=== PATIENT | male | born 1985 | race Caucasian/White ===

== ENCOUNTER 2018-01-31 04:17 | Inpatient (IN) | payer OTHER, SELFPAY ==
[2018-01-31 04:36] LABS: #Basophils 0.1 thou/uL (0.0-0.2); #Eosinphils 0.2 thou/uL (0.0-0.7); #Lymphocytes 2.2 thou/uL (1.20-3.40); #Monocytes 1.1 thou/uL (0.11-0.59); #Neutrophils 13.4 thou/uL (1.40-6.50); %Basophils 0.5 % (0.0-1.0); %Lymphocytes 13.2 % (21.0-51.0); %Monocytes 6.2 % (0.0-10.0); %Neutrophils 79.2 % (42.0-75.0); Hemoglobin 16.4 g/dL (14.0-18.0); Mean Corpuscular HGB CONC 34.2 g/dL (32.0-36.0); Mean Corpuscular Hemoglobin 31.3 pg (27.0-31.0); Mean Corpuscular Volume 91.4 fl (80.0-94.0); Platelet Count 306 thou/uL (130-400); RBC Distribution Width 12.8 % (11.5-14.5); Red Blood Cell (RBC) Count 5.23 mill/uL (4.70-6.10); White Blood Cell (WBC) Count 16.9 thou/uL (4.8-10.8)
[2018-01-31 04:48] LABS: Alcohol Less than 10 mg/dL (Less than 10); Anion Gap 12 mmol/L (10-20); BUN (Urea Nitrogen) 11 mg/dL (8.9-20.6); Calc. Creatinine Clearance 0 mL/min (70-130); Calcium 9.2 mg/dL (7.8-10.44); Carbon Dioxide 25 mmol/L (22-29); Chloride 104 mmol/L (98-107); Estimated GFR-MDRD Greater than 90; Glucose 120 mg/dL (70-105); Potassium 3.4 mmol/L (3.5-5.1); Sodium 138 mmol/L (136-145)
[2018-01-31] MEDS ORDERED: Morphine 4 MG/ML VIAL ONE (04:51)
[2018-01-31] MEDS ORDERED: CEFAZOLIN 1 GM VIAL ONE (05:21)
[2018-01-31] MEDS ORDERED: Sodium Chloride 0.9% 100 ML ONE (05:22)
[2018-01-31] MEDS ORDERED: Adacel (T-DAP) 0.5 ML VIAL ONE (05:22)
[2018-01-31] MEDS ORDERED: TETANUS AND DIPHTHERIA TOX/PF 0.5 ML DISP.SYRIN IM SCH (07:00)
[2018-01-31 08:00] VITALS: BMI 22.8
[2018-01-31] MEDS ORDERED: Dextrose 5% in Water 1,000 ML IV PRN (08:13)
[2018-01-31] MEDS ORDERED: Ondansetron ODT 4 MG TAB PO PRN (08:13)
[2018-01-31] MEDS ORDERED: hydrALAZINE 20 MG/ML VIAL SLOW IVP PRN (08:13)
[2018-01-31] MEDS ORDERED: Dextrose 50% Abboject 50 ML SYRINGE SLOW IVP PRN (08:13)
[2018-01-31] MEDS ORDERED: Ondansetron HCl/PF 4 MG/2 ML Vial IVP PRN ×2 (08:13→14:31)
[2018-01-31] MEDS ORDERED: ABX IVPB PRN (08:15)
[2018-01-31] MEDS: Morphine 4 MG/ML VIAL SLOW IVP PRN (08:39)
[2018-01-31] MEDS ORDERED: Morphine 4 MG/ML VIAL SLOW IVP PRN ×2 (09:00)
[2018-01-31] MEDS ORDERED: Fentanyl 100 MCG/2 ML VIAL ONE (10:46)
[2018-01-31] MEDS ORDERED: HYDROmorphone 0.5 MG/0.5 ML SYRINGE ONE ×3 (10:46→14:24)
[2018-01-31] MEDS ORDERED: Midazolam HCl 2 mg/2 ml Vial ONE (10:47)
[2018-01-31] MEDS ORDERED: Neomycin-Polymyxin 1 ML AMP ONE (11:04)
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
[2018-01-31] MEDS ORDERED: ISOVUE-370 76%-LOCM 1 ML ONE (11:37)
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
[2018-01-31] MEDS ORDERED: HYDROmorphone 2 MG/ML VIAL SLOW IVP PRN (14:31)
[2018-01-31] MEDS ORDERED: Promethazine HCl 25 MG/ML VIAL SLOW IVP PRN (14:31)
[2018-01-31] MEDS ORDERED: Promethazine HCl 25 MG/ML VIAL IM PRN (14:31)
[2018-01-31] MEDS ORDERED: Lidocaine 1% PF 5 ML VIAL ONE (15:21)
[2018-01-31] MEDS ORDERED: Ondansetron HCl/PF 4 MG/2 ML Vial ONE (15:21)
[2018-01-31] MEDS ORDERED: Ketorolac Tromethamine 30 MG/ML VIAL ONE (15:21)
[2018-01-31] MEDS ORDERED: PROPOFOL 200 MG/20 ML VIAL ONE (15:21)
[2018-01-31] MEDS ORDERED: Dexamethasone 20 MG/5 ML VIAL ONE (15:21)
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
--- NOTE | 2018-01-31 15:43 | RAD ---
LEFT ELBOW TWO VIEWS: 01/31/18 HISTORY: Intraoperative films. There has been open reduction and internal fixation of a comminuted proximal ulnar fracture. The olec ranon has been fixed in place with plate and screws. IMPRESSION: Open reduction and internal fixation of ulnar fracture. POS: [facility]
--- NOTE | 2018-01-31 15:48 | RAD ---
LEFT SCAPULA ONE VIEW: 01/31/18 HISTORY: Intraoperative film. COMPARISON: CT examination. This single projection shows postoperative changes related to what appears to be hardware placement r elated to the glenoid fracture. IMPRESSION: Fixation of glenoid fracture. POS: [facility]
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
[2018-01-31] MEDS: Sodium Chloride 0.9% 100 ML IV SCH ×3 (17:28→17:30)
[2018-01-31] MEDS: Sodium Chloride 0.9% 1,000 ML IV SCH ×3 (17:30→21:17)
[2018-01-31] MEDS: Famotidine 20 MG TAB PO SCH ×2 (17:30→21:17)
[2018-01-31] MEDS: CEFAZOLIN/Water 2 GM/20 ML SYRINGE SLOW IVP SCH ×2 (17:31→21:17)
[2018-02-01 04:34] LABS: #Lymphocytes 2.5 thou/uL (1.20-3.40); #Monocytes 1.3 thou/uL (0.11-0.59); #Neutrophils 9.2 thou/uL (1.40-6.50); %Basophils 0.1 % (0.0-1.0); %Eosinophils 0.3 % (0.0-10.0); %Lymphocytes 19.3 % (21.0-51.0); %Neutrophils 70.3 % (42.0-75.0); Hemoglobin 13.8 g/dL (14.0-18.0); Mean Corpuscular HGB CONC 32.8 g/dL (32.0-36.0); Mean Corpuscular Hemoglobin 30.6 pg (27.0-31.0); Mean Corpuscular Volume 93.3 fl (80.0-94.0); Mean Platelet Volume 7.6 fL (7.4-10.4); Platelet Count 263 thou/uL (130-400); White Blood Cell (WBC) Count 13.1 thou/uL (4.8-10.8)
[2018-02-01 04:42] LABS: Anion Gap 7 mmol/L (10-20); BUN (Urea Nitrogen) 11 mg/dL (8.9-20.6); Calc. Creatinine Clearance 147 mL/min (70-130); Calcium 8.2 mg/dL (7.8-10.44); Carbon Dioxide 25 mmol/L (22-29); Chloride 109 mmol/L (98-107); Estimated GFR-MDRD Greater than 90; Glucose 106 mg/dL (70-105); Potassium 3.4 mmol/L (3.5-5.1); Sodium 138 mmol/L (136-145)
[2018-02-01] MEDS: Sodium Chloride 0.9% 1,000 ML IV SCH (06:04)
[2018-02-01] MEDS: CEFAZOLIN/Water 2 GM/20 ML SYRINGE SLOW IVP SCH ×3 (06:05→22:15)
[2018-02-01] MEDS: Famotidine 20 MG TAB PO SCH ×2 (08:21→22:16)
[2018-02-01] MEDS: Morphine 4 MG/ML VIAL SLOW IVP PRN (08:21)
[2018-02-01] MEDS ORDERED: HYDROcodone/Acetaminophen 7.5/325 mg Tablet PO PRN (08:33)
[2018-02-01] MEDS ORDERED: Ibuprofen 800 MG TAB PO SCH (08:52)
[2018-02-01] MEDS: Acetaminophen 500 MG TAB PO SCH ×4 (09:48→20:44)
--- NOTE | 2018-02-01 10:29 | RAD ---
LEFT SHOULDER 3 VIEWS: Date: 02/01/18 HISTORY: Postop. FINDINGS: There is some soft tissue swelling and air within the soft tissues related to the recent surgery. The re has been open reduction and internal fixation of a posterior glenoid fracture stabilized with plat e and screws. IMPRESSION: Open reduction and internal fixation of a glenoid fracture. POS: [facility]
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
[2018-02-01] MEDS: Ibuprofen 800 MG TAB PO SCH ×2 (13:39→21:27)
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
[2018-02-01] MEDS: HYDROcodone/Acetaminophen 7.5/325 mg Tablet PO PRN ×2 (17:52→21:27)
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
[2018-02-02] MEDS: Acetaminophen 500 MG TAB PO SCH ×6 (01:44→20:59)
[2018-02-02] MEDS: Ibuprofen 800 MG TAB PO SCH ×3 (05:16→21:01)
[2018-02-02] MEDS: HYDROcodone/Acetaminophen 7.5/325 mg Tablet PO PRN ×4 (05:16→20:57)
[2018-02-02] MEDS: CEFAZOLIN/Water 2 GM/20 ML SYRINGE SLOW IVP SCH (05:17)
[2018-02-02] MEDS: Famotidine 20 MG TAB PO SCH ×2 (09:15→20:58)
[2018-02-02] MEDS ORDERED: traMADol HCl 50 MG TAB PO PRN (12:59)
[2018-02-02] MEDS: traMADol HCl 50 MG TAB PO PRN (14:41)
[2018-02-03] MEDS: Acetaminophen 500 MG TAB PO SCH ×4 (00:39→11:36)
[2018-02-03] MEDS: HYDROcodone/Acetaminophen 7.5/325 mg Tablet PO PRN ×2 (06:13→10:20)
[2018-02-03] MEDS: Ibuprofen 800 MG TAB PO SCH ×2 (06:13→14:10)
[2018-02-03] MEDS: Famotidine 20 MG TAB PO SCH (07:51)
[2018-02-03] MEDS: traMADol HCl 50 MG TAB PO PRN (07:51)
[2018-02-03 11:53] VITALS: BP 139/74; TEMP 98.1
== END 2018-02-03 14:55 | disposition home or self-care (01) | DRG 510 ==
LOC: ERS 04:17 → SURG B 06:07
PROVIDERS: ADMIT Surgery; ATTEND Surgery
PROC: 0PSL04Z Reposition Left Ulna with Internal Fixation Device, Open Approach (ICD-10-PCS; principal; 2018-01-31)
PROC: 0PS804Z Reposition Left Glenoid Cavity with Internal Fixation Device, Open Approach (ICD-10-PCS; 2018-01-31)
PROC: 0RSM0ZZ Reposition Left Elbow Joint, Open Approach (ICD-10-PCS; 2018-01-31)
PROC: 0QSFXZZ Reposition Left Patella, External Approach (ICD-10-PCS; 2018-01-31)
DX: S52.022B Displaced fracture of olecranon process without intraarticular extension of left ulna, initial encounter for open fracture type I or II (principal); S42.402B Unspecified fracture of lower end of left humerus, initial encounter for open fracture; S22.061A Stable burst fracture of T7-T8 vertebra, initial encounter for closed fracture; S06.0X9A Concussion with loss of consciousness of unspecified duration, initial encounter; S82.002A Unspecified fracture of left patella, initial encounter for closed fracture; S42.142A Displaced fracture of glenoid cavity of scapula, left shoulder, initial encounter for closed fracture; V43.52XA Car driver injured in collision with other type car in traffic accident, initial encounter; Y92.411 Interstate highway as the place of occurrence of the external cause; Z88.0 Allergy status to penicillin; F32.9 Major depressive disorder, single episode, unspecified; F41.9 Anxiety disorder, unspecified; F12.90 Cannabis use, unspecified, uncomplicated; F17.210 Nicotine dependence, cigarettes, uncomplicated; R40.2413 Glasgow coma scale score 13-15, at hospital admission; S53.125A Posterior dislocation of left ulnohumeral joint, initial encounter
CPT/HCPCS: 24670; 36415; 70450; 71045; 71260; 72125; 72170; 74177; 76001; 80048; 80307; 85025; 86850; 86900; 86901; 90471; 90715; 93005; 94760; 96361; 96365; 96375; 99292; 99406; C1713; G0390; G8978-GP-CL; G8979-GP-CJ; G8987-GO-CL; G8988-GO-CL; G8989-GO-CL; J0690; J1100; J1170; J1885; J2001; J2250; J2270; J2405; J2704; J3010; J3490; J7050; L0639